=== PATIENT | male | born 1975 | race Two or more races ===

== ENCOUNTER 2017-12-01 19:19 | Emergency (ER) | payer SELFPAY ==
[2017-12-01 19:49] VITALS: BP 118/71
--- NOTE | 2017-12-01 21:14 | EDM.PDOC ---
ED HPI GENERAL MEDICAL PROBLEM - General Chief Complaint: Headache Stated Complaint: MIGRAIN Time Seen by Provider: 12/01/17 20:37 Source of Information: Reports: Patient, Family History Limitations: Reports: No Limitations - History of Present Illness INITIAL COMMENTS - FREE TEXT/NARRATIVE: This is a 42-year-old male. Apparently earlier this week on Monday he slipped on the ice and fell landing on his buttocks and his back. He did not hit his head but ever since that time he's been having on and off throbbing-type headaches. He states his neck is slightly sore when he does get the headache seems to be in the frontal region and in the back. 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 He is recovered completely and normally has no history of headaches but because of his fall even though he did not hit his head they're concerned about may be another bleed in his brain. He has had no nausea and vomiting no fever no chills no colds and congestion no sinus drainage. He is acting perfectly normal with no photosensitivity no instability to sound. He is very verbal and alert and interactive. Headache Pain Score (Numeric/FACES): 6 - Related Data Allergies Allergy/AdvReac Type Severity Reaction Status Date / Time No Known Allergies Allergy Verified 12/01/17 21:25 Home Meds: Home Meds . [No Known Home Meds] 11/14/14 [History] Past Medical History Neurological History: Reports: Other (See Below) Other Neuro History: CONTUSION ON BRAIN - Past Surgical History Neurological Surgical History: Reports: Other (See Below) Other Neurological Surgeries/Procedures: BRAIN SURGERY Social & Family History - Family History Family Medical History: Noncontributory - Tobacco Use Smoking Status *Q: Never Smoker Second Hand Smoke Exposure: No - Caffeine Use Caffeine Use: Reports: Coffee - Alcohol Use Days Per Week of Alcohol Use: 1 Number of Drinks Per Day: 2 Total Drinks Per Week: 2 - Recreational Drug Use Recreational Drug Use: No ED ROS GENERAL - Review of Systems Review Of Systems: See Below Constitutional: Denies: Fever, Chills HEENT: Denies: Rhinitis, Sinus Problem Respiratory: Reports: No Symptoms Cardiovascular: Reports: No Symptoms Endocrine: Reports: No Symptoms GI/Abdominal: Reports: No Symptoms : Reports: No Symptoms Musculoskeletal: Reports: Muscle Stiffness. Denies: Neck Pain Skin: Reports: No Symptoms Neurological: Reports: Headache. Denies: Confusion, Trouble Speaking, Difficulty Walking, Weakness Psychiatric: Reports: No Symptoms Hematologic/Lymphatic: Reports: No Symptoms - Physical Exam Exam: See Below Exam Limited By: No Limitations General Appearance: Alert, WD/WN, No Apparent Distress Eye Exam: Bilateral Eye: Normal Inspection Ears: Normal External Exam, Normal Canal, Normal TMs Nose: Normal Inspection Throat/Mouth: Normal Inspection, Normal Lips, Normal Oropharynx, Normal Voice, No Airway Compromise Head Exam: Normocephalic, Other (His head is atraumatic, you can see a slight scar from the craniotomy in the left parietal area) Neck: Normal Inspection, Supple, Non-Tender, Full Range of Motion Respiratory/Chest: No Respiratory Distress, Lungs Clear, Normal Breath Sounds Cardiovascular: Regular Rate, Rhythm, No Murmur GI/Abdominal: Soft Neuro Exam (Abbreviated): Alert, Oriented, CN II-XII Intact, Normal Cognition, No Motor/Sensory Deficits Back Exam: Full Range of Motion Extremities: Normal Inspection, Normal Range of Motion Psychiatric: Normal Affect, Normal Mood Skin Exam: Warm, Dry Course - Vital Signs Last Recorded V/S: Last Vital Signs Temp 97.2 F 12/01/17 19:47 Pulse 58 L 12/01/17 19:47 Resp 18 12/01/17 19:47 BP 118/71 12/01/17 19:47 Pulse Ox 97 12/01/17 19:47 - Orders/Labs/Meds Orders: Active Orders 24 hr Category Date Time Status Head wo Cont [CT] Stat Exams 12/01/17 20:55 Taken - Radiology Interpretation Free Text/Narrative:: CT scan of the head did not show any acute findings. - Re-Assessments/Exams Free Text/Narrative Re-Assessment/Exam: 12/01/17 23:56 Spoke to the patient and the family regarding the CAT scan. I believe that when he fell he has some mild neck soreness and whenever he tries to do any sort of heavy work restraining that's when he seems to get his headache. I believe it is muscular in nature. I suggested he taking some Tylenol for the headaches to help and hopefully they'll go away in the next week or so. If not he is to follow-up with his family doctor. Departure - Departure Time of Disposition: 23:57 Disposition: Home, Self-Care 01 Condition: Good Clinical Impression: Tension headache - Discharge Information Referrals: PCP,None [Primary Care Provider] - Forms: ED Department Discharge Additional Instructions: Take some Tylenol as needed for your headache, do your best to avoid any severe straining or lifting over the next few days, if the headaches do not seem to ease up over the next few days follow-up with your family doctor for additional evaluation. - My Orders Last 24 Hours: My Active Orders 12/01/17 20:55 Head wo Cont [CT] Stat - Assessment/Plan Last 24 Hours: My Active Orders 12/01/17 20:55 Head wo Cont [CT] Stat
--- NOTE | 2017-12-02 14:25 | CT ---
Head CT Technique: Multiple axial sections through the brain were obtained. Intravenous contrast was not utilized. Comparison: No previous study. Findings: Ventricles along the basal cisterns and sulci over the convexities are mildly prominent. Increased CSF collections are seen symmetrically on both sides within the frontal regions extending into the parietal convexities. These findings may represent greater cortical atrophy or chronic subdural hygromas. There is slight increased density noted within the cortical surface of the left parietal region which may represent minimal cortical petechial hemorrhage. No other areas of hemorrhage are seen. No midline shift or mass effect is otherwise seen. Bone window settings were reviewed which shows no acute calvarial abnormality. Previous bur holes are noted on the left side. Visualized sinuses are clear. Impression: 1. Increased density possibly due to minimal petechial hemorrhage within the left parietal convexity. This could also represent calcification within the cortex. 2. Generalized atrophy. 3. Increased CSF spaces overlying the frontal and parietal convexities. As mentioned above, this could represent greater cortical atrophy or represent chronic subdural hygromas. Diagnostic code #3 Mostly agree with preliminary report issued by [facility] , with additional finding as noted above ([facility] report finalized on 12/01/17, 10:33 PM Central Time)
== END 2017-12-02 00:05 | disposition home or self-care (01) ==
LOC: JD.ED 19:19
DX: G44.209 Tension-type headache, unspecified, not intractable (principal); W00.0XXA Fall on same level due to ice and snow, initial encounter
CPT/HCPCS: 70450; 70450-26; 99283; 99284-25

== ENCOUNTER 2020-09-05 16:18 | Emergency (ER) | payer BC ==
[2020-09-05 16:31] VITALS: BP 143/79; PULSE 71
[2020-09-05] MEDS ORDERED: Diphtheria,Pertussis(Acell),Tetanus Vaccine 0.5 ML Syringe IM ONE ×2 (16:45→17:00)
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
== END 2020-09-05 17:15 | disposition home or self-care (01) ==
LOC: JD.ED 16:18
DX: S61.011A Laceration without foreign body of right thumb without damage to nail, initial encounter (principal); Z23 Encounter for immunization; W32.0XXA Accidental handgun discharge, initial encounter
CPT/HCPCS: 12001; 90471; 90715; 99282; 99282-25